=== PATIENT | male | born 1965 | race Caucasian/White ===

== ENCOUNTER 2020-08-11 10:25 | Emergency (ER) | payer OTHER ==
[~2020-08-11] VITALS: Ht 180.3 cm; Wt 100.2 kg
[~2020-08-11 10:25] MED LIST: AMOX1TAB12 PO; ATOR-2 PO; FENO50CA4 PO; OLME1TAB30 PO; OMEP20CA20 PO
--- NOTE | 2020-08-11 11:00 | NUR ---
PT AMBULATED TO ROOM FROM TRIAGE. PT STATED THAT HE HAS COLONOSCOPY YESTERDAY AND IS NOW EXPERIENCING LLQ PAIN. PT STATED THAT HE HAS A HISTORY OF DIVERTICULITIS AND SOME POLYPS WERE REMOVED DURING HIS COLONOSCOPY. PT CALLED [facility] AND HE WAS TIOLD TO COME TO THE ER TO GET A CT SCAN TO MAKE SURE THAT HIS BOWEL WASN'T PERFORATED DURING PROCEDURE. PT DENIES ANY BLOOD IN STOOL OR FEVER. PT STATED HE HAS NORMAL BM THIS MORNING.
--- NOTE | 2020-08-11 12:00 | NUR ---
PT RESTING COMFORTABLY IN [facility]. CALL LIGHT WITHIN REACH.
[2020-08-11] MEDS ORDERED: MORPHINE SULFATE 4 MG/ML, 1ML IVPush PRN (12:30)
[2020-08-11] MEDS ORDERED: ONDANSETRON 2MG/ML, 2ML IVPush ONE (12:30)
[2020-08-11] MEDS ORDERED: ONDANSETRON 2MG/ML, 2ML ONE (12:41)
[2020-08-11] MEDS ORDERED: MORPHINE SULFATE 4 MG/ML, 1ML ONE (12:41)
--- NOTE | 2020-08-11 12:45 | NUR ---
PT TO CT
[2020-08-11] MEDS ORDERED: OMNIPAQUE 350 MG/ML, 100ML BOTTLE ONE (12:51)
[2020-08-11 12:53] LABS: BASOPHILS % (AUTO) 0 % (0-1); EOSINOPHILS % (AUTO) 0 % (1-7); LYMPHOCYTES % (AUTO) 13 % (22-44); MEAN CORPUSCULAR HEMOGLOBIN 30.8 pg (27.5-34.5); MEAN CORPUSCULAR HGB CONC 34.5 g/dL (33.2-36.2); MEAN PLATELET VOLUME 9.5 fL (7.4-10.4); MONOCYTES % (AUTO) 10 % (2-9); NEUTROPHILS % (AUTO) 76 % (42-75); PLATELET COUNT 230 x10^3/uL (130-400); RED BLOOD COUNT 5.35 x10^6/uL (4.38-5.82); RED CELL DISTRIBUTION WIDTH 14.2 % (9.4-14.8)
[2020-08-11 12:57] LABS: ALBUMIN 3.9 g/dL (3.4-5.0); ANION GAP 8 mmol/L (5-15); CALCIUM 9.1 mg/dL (8.5-10.1); CHLORIDE 107 mmol/L (98-107); CREATININE 1.36 mg/dL (0.7-1.3)
[2020-08-11 13:25] LABS: MD SCAN
[2020-08-11] MEDS ORDERED: METRONIDAZOLE PMX 500MG/100ML 100 ML IV ONE (13:30)
[2020-08-11] MEDS ORDERED: CEFOTETAN PMX 1GM/50ML 50 ML IVPB ONE (13:30)
--- NOTE | 2020-08-11 14:00 | NUR ---
PT RESTING COMFORTABLY IN [facility]. IV ABX INFUSING.
[2020-08-11] MEDS ORDERED: METRONIDAZOLE PMX 500MG/100ML 100 ML ONE (14:20)
--- NOTE | 2020-08-11 15:15 | NUR ---
PT RESTING COMFORTABLY. IV ABX INFUSING. CALL LIGHT WITHIN REACH.
[2020-08-11 16:31] VITALS: BP 96/64
--- NOTE | 2020-08-11 16:32 | NUR ---
PT RESTING COMFORTABLY. MD TO TALK TO PT.
--- NOTE | 2020-08-11 17:13 | NUR ---
DISCHARGE INSTRUCTIONS REVIEWED WITH PT. ALL QUESTIONS ANSWERED AT THIS TIME.
== END 2020-08-11 17:15 | disposition home or self-care (01) ==
LOC: ED 12:52
DX: K57.32 Diverticulitis of large intestine without perforation or abscess without bleeding (principal); I10 Essential (primary) hypertension; R10.31 Right lower quadrant pain
CPT/HCPCS: 36415; 74177; 80048; 82040; 83605; 85025; 87040; 96365; 96367; 96375; 99285; J2270; J2405; Q9967